=== PATIENT | male | born 2000 | race Caucasian/White ===

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

== ENCOUNTER 2023-04-17 12:57 | Emergency (ER) | payer BC, SELFPAY ==
[2023-04-17 13:15] VITALS: BP 125/77; PULSE 85; RESP 18; TEMP 36.8; O2SAT 99; BMI 24.4
--- NOTE | 2023-04-17 13:39 | EXP.UTC ---
Discharge Plan Disposition Patient Disposition: Home, Self-Care Condition: Good Prescriptions Prescriptions: New ofloxacin [Ocuflox] 0.3 % drops 1 drp ophthalmic (eye) QID 3 Days Qty: 10 0RF Rx Instructions: in left eye as directed No Action methylphenidate HCl 10 mg tablet extended release 10 mg PO DAILY Qty: 30 0RF sertraline [Zoloft] 50 mg tablet 50 mg PO DAILY Qty: 90 0RF cetirizine [Zyrtec] 10 mg capsule 10 mg PO QDAY fluticasone propionate [Flonase Allergy Relief] 50 mcg/actuation spray,suspension 50 mcg INTRANASAL QDAY PRN ondansetron 4 MG tablet,disintegrating 4 mg PO Q8HP PRN (Reason: Nausea) Qty: 20 0RF Referrals Follow up/Referrals: Teto Cohen MD [Primary Care Provider] - See instructions Activity Restrictions/Add. Instructions Additional Instructions/Restrictions: Use drops as prescribed DO NOT WEAR CONTACTS UNTIL EYE COMPLETELY HEALED If eye not improved by tomorrow Morning Follow up tomorrow morning at [facility] per Dr Allen Straight to ER if any life threatening symptoms Clinical Impressions Clinical Impression: Eye problem Instructions Patient Instructions: DI for Eye Pain Discharge ED Provider: Charissa Deshpande [facility] General Stated complaint: Redness and swelling to left eye Mode of Arrival: Ambulatory Source of Information: Patient Limitations: No Limitations Time Seen by Provider: 04/17/23 13:40 Description of Symptoms (Recalled from Triage Doc. by RN): PATIENT C/O REDNESS AND SWELLING TO LEFT EYE SINCE YESTERDAY HEENT Symptoms (Recalled from RN notes): Yes Resp Symptoms (Recalled from RN notes): No Skin Symptoms (Recalled from RN notes): No MS Symptoms (Recalled from RN notes): No Functional Status (Recalled from RN notes): WNL History of Present Illness Provider Complaint: Patient states that he was driving to work yesterday and his left contact started bothering him out of the blue States that it continued to bother him on and off and so he took it out and put allergy drops in his eye States that when he woke up this morning his eye was puffy red and watering Denies FB Denies pain denies injury states that eye feels irritated Related Data Home Medications Medication Instructions Recorded Confirmed cetirizine 10 mg capsule (Zyrtec) 10 mg PO QDAY 05/24/17 02/06/20 fluticasone propionate 50 50 mcg intranasal QDAY PRN 05/24/17 02/06/20 mcg/actuation nasal spray,suspension (Flonase Allergy Relief) Previous Rx's Medication Instructions Recorded ondansetron 4 mg disintegrating 4 mg PO Q8HP PRN Nausea ##20 06/14/19 tablet methylphenidate HCl 10 mg 10 mg PO DAILY #30 tabs 12/31/20 tablet,extended release sertraline 50 mg tablet (Zoloft) 50 mg PO DAILY #90 tabs 12/31/20 ofloxacin 0.3 % eye drops (Ocuflox) 1 drp ophthalmic (eye) QID 3 days 04/17/23 #10 mL Allergies Allergy/AdvReac Type Severity Reaction Status Date / Time PEANUTS (FOOD) Allergy Unknown UNKNOWN-FROM Uncoded 11/05/20 16:03 ALLERGY TESTS Worker's Comp Is this a Worker's Comp case?: No [facility] Disclaimer: The information contained in this section may have been updated after the patient was seen, as this information can be updated by other users. Medical History (Updated 04/17/23 @ 13:46 by Charissa Deshpande APRN) Anxiety Asthma Surgical History (Updated 04/17/23 @ 13:22 by Susu Mcbride RN) History of tonsillectomy Social History Smoking Status: Unknown if ever smoked alcohol intake: never substance use type: denies use current occupational status: employed Travel in the last 8 weeks: None household members: family housing: house number of children: 0 ROS Obtained: Yes All systems reviewed & no additional complaints except as documented and Yes Systems reviewed as appropriate & no additional complaints except as documented Constitutional Constitutional: Reports system reviewed and
[2023-04-17 13:43] VITALS: BP 125/77; PULSE 85; RESP 18; TEMP 36.8; O2SAT 99
== END 2023-04-17 13:54 | disposition home or self-care (01) ==
PROVIDERS: Emergency Provider Nurse Practitioner; PCP Family Medicine
DX: H53.142 Visual discomfort, left eye (principal); H02.846 Edema of left eye, unspecified eyelid; H57.89 Other specified disorders of eye and adnexa
CPT/HCPCS: 99212; 99214; G0463

== ENCOUNTER 2023-08-12 11:31 | Emergency (ER) | payer BC, SELFPAY ==
[2023-08-12 11:45] VITALS: BP 124/77; PULSE 74; RESP 19; TEMP 36.6; O2SAT 98; BMI 24.9
--- NOTE | 2023-08-12 11:57 | EXP.UTC ---
Discharge Plan Disposition Patient Disposition: Home, Self-Care Condition: Good Prescriptions Prescriptions: New ondansetron 4 mg tablet,disintegrating 4 mg PO Q8H PRN (Reason: nausea and vomiting) Qty: 10 0RF No Action methylphenidate HCl 10 mg tablet extended release 10 mg PO DAILY Qty: 30 0RF sertraline [Zoloft] 50 mg tablet 50 mg PO DAILY Qty: 90 0RF cetirizine [Zyrtec] 10 mg capsule 10 mg PO QDAY fluticasone propionate [Flonase Allergy Relief] 50 mcg/actuation spray,suspension 50 mcg INTRANASAL QDAY PRN ondansetron 4 MG tablet,disintegrating 4 mg PO Q8HP PRN (Reason: Nausea) Qty: 20 0RF ofloxacin [Ocuflox] 0.3 % drops 1 drp ophthalmic (eye) QID 3 Days Qty: 10 0RF Rx Instructions: in left eye as directed Referrals Follow up/Referrals: Teto Cohen MD [Primary Care Provider] - See instructions Activity Restrictions/Add. Instructions Additional Instructions/Restrictions: Drink extra fluids with and between meals. If you have difficulty drinking, try very small amounts of water or suck on ice chips. ? Avoid fruit juices, as these do not replace minerals and can actually increase diarrhea. ? Children and adults can use sports drinks to replenish electrolytes. Younger children and infants should use products formulated for children, like oral rehydration solutions. ? Eat food in small amounts and let your stomach recover. ? Get lots of rest. You may feel tired or weak. ? No greasy or fried foods for the next 24-48 hours BRAT diet Bananas Rice Apples and [place] ? Make sure to drink plenty of liquids ? Return if needed ? Straight to ER if any life threatening symptoms ? Zofran as prescribed ? Follow up with family doctor in the next 48-72 hours if no improvement or any worsening of symptoms Clinical Impressions Clinical Impression: Viral syndrome Stand Alone Forms Stand Alone Forms: Work/School Release Instructions Patient Instructions: DI for Viral Syndrome, DI for Vomiting -- Adult Discharge ED Provider: Charissa Deshpande [facility] General Stated complaint: vomiting, diarrea, body aches Mode of Arrival: Ambulatory Source of Information: Patient Limitations: No Limitations Time Seen by Provider: 08/12/23 11:57 Description of Symptoms (Recalled from Triage Doc. by RN): PATIENT C/O VOMITING, DIARRHEA AND BODY ACHES SINCE YESTERDAY HEENT Symptoms (Recalled from RN notes): No Resp Symptoms (Recalled from RN notes): No Skin Symptoms (Recalled from RN notes): No MS Symptoms (Recalled from RN notes): No Functional Status (Recalled from RN notes): WNL History of Present Illness Provider Complaint: Patient states that he started feeling bad yesterday with body aches, vomiting and not feeling well states today he wasnt feeling any better so he came in to get checked Related Data Home Medications Medication Instructions Recorded Confirmed cetirizine 10 mg capsule (Zyrtec) 10 mg PO QDAY 05/24/17 02/06/20 fluticasone propionate 50 50 mcg intranasal QDAY PRN 05/24/17 02/06/20 mcg/actuation nasal spray,suspension (Flonase Allergy Relief) Previous Rx's Medication Instructions Recorded ondansetron 4 mg disintegrating 4 mg PO Q8HP PRN Nausea ##20 06/14/19 tablet methylphenidate HCl 10 mg 10 mg PO DAILY #30 tabs 12/31/20 tablet,extended release sertraline 50 mg tablet (Zoloft) 50 mg PO DAILY #90 tabs 12/31/20 ofloxacin 0.3 % eye drops (Ocuflox) 1 drp ophthalmic (eye) QID 3 days 04/17/23 #10 mL ondansetron 4 mg disintegrating 4 mg PO Q8H PRN nausea and 08/12/23 tablet vomiting #10 tabs Allergies Allergy/AdvReac Type Severity Reaction Status Date / Time PEANUTS (FOOD) Allergy Unknown UNKNOWN-FROM Uncoded 11/05/20 16:03 ALLERGY TESTS Worker's Comp Is this a Worker's Comp case?: No [facility] Disclaimer: The information contained in this section may have been updated after the patient was seen, as this information can be updated by other users. Medical History (Updated 08/12/23 @ 12:14 by Charissa Deshpande APRN) Anxiety Asthma Surgical History (Updated 04/17/23 @ 13:22 by Susu Mcbride RN) History of tonsillectomy Social History Smoking Status: Unknown if ever smoked alcohol intake: never substance use type: denies use current occupational status: employed Travel in the last 8 weeks: None household members: family housing: house number of children: 0 ROS Obtained: Yes All systems reviewed & no additional complaints except as documented and Yes Systems reviewed as appropriate & no additional complaints except as documented Constitutional Constitutional: Reports system reviewed and no additional complaints, except as documented, Reports as per HPI, Reports body ache and Reports headache(s) ENT Ears, Nose, Mouth, and Throat: Reports system reviewed and no additional complaints, except as documented, Reports as per HPI and Reports headache(s) Cardiovascular Cardiovascular: Reports system reviewed and no additional complaints, except as documented and Reports as per HPI Respiratory Respiratory: Reports system reviewed and no additional complaints, except as documented and Reports as per HPI Gastrointestinal Gastrointestingal: Reports system reviewed and no additional complaints, except as documented, as per HPI, nausea and vomiting Neurologic Neurologic: Reports headache(s) Physical Exam General General appearance: alert and in no apparent distress Expanded ENT Exam Throat exam: Present other (Pharyngeal erythema noted with PND) Respiratory Respiratory exam: Present normal lung sounds bilaterally; Absent respiratory distress or wheezes Cardiovascular Cardiovascular exam: Present regular rate, normal rhythm and normal heart sounds Abdominal Exam Abdominal exam: Present soft and normal bowel sounds; Absent distention or tenderness Neurological Exam Neurological exam: Present alert, oriented X3 and normal gait Medical Decision Making Robin Inquiry Pt receiving controlled substance: No Robin was queried for this patient: No Vital Signs: 08/12/23 11:45 Temperature 97.8 F Temperature Source Oral Pulse Rate [Left Brachial] 74 Respiratory Rate 19 Blood Pressure [Left Arm] 124/77 Blood Pressure Mean [Left Arm] 92 Blood Pressure Source [Left Arm] Automatic Cuff Blood Pressure Position [Left Arm] Sitting 02 Sat by Pulse Oximetry 98 Oxygen Delivery Method Room Air Lab Data Lab results reviewed: Yes I reviewed the patient's lab results.
[2023-08-12 12:15] VITALS: BP 124/77; PULSE 74; RESP 19; TEMP 36.6; O2SAT 98
[2023-08-12 12:17] LABS: UTC Influenza A Antigen Negative (Negative); UTC Influenza B Antigen Negative (Negative)
[2023-08-12 12:17] LABS: UTC Strep Screen (Rapid) Negative (Negative)
== END 2023-08-12 12:18 | disposition home or self-care (01) ==
PROVIDERS: Emergency Provider Nurse Practitioner; PCP Family Medicine
DX: R11.2 Nausea with vomiting, unspecified (principal); M79.18 Myalgia, other site; B34.9 Viral infection, unspecified
CPT/HCPCS: 87804; 87880; 99212; 99214; G0463